=== PATIENT | male | born 1970 | race Caucasian/White ===

== ENCOUNTER 2018-09-07 15:27 | Emergency (ER) | payer OTHER ==
[~2018-09-07] VITALS: Ht 182.9 cm; Wt 95.3 kg
[2018-09-07] MEDS ORDERED: LEXAPRO20 MG (15:55)
[2018-09-07] MEDS ORDERED: HUMULIN 70100 UNIT/2 (15:55)
[2018-09-07] MEDS ORDERED: GLIPIZIDE ER10 MG (15:56)
[2018-09-07] MEDS ORDERED: RESTORIL30 M1 (15:56)
[2018-09-07] MEDS ORDERED: LIPITOR20 MG (15:56)
[2018-09-07] MEDS ORDERED: ASA81 MG (15:56)
[2018-09-07] MEDS ORDERED: COZAAR100 MG (15:57)
[2018-09-07] MEDS ORDERED: B-121000 MC2 (15:57)
[2018-09-07] MEDS ORDERED: SEROQUEL XR150 MG (15:58)
[2018-09-07] MEDS ORDERED: PERCOCET 5-3251 EACH (15:58)
[2018-09-07] MEDS ORDERED: CLONAZEPAM2 MG (15:58)
[2018-09-07] MEDS ORDERED: SKELAXIN800 MG PO (21:35)
== END 2018-09-07 22:03 ==
LOC: ER 15:27
DX: R07.89 Other chest pain (principal); M62.838 Other muscle spasm; M79.18 Myalgia, other site; M72.0 Palmar fascial fibromatosis [Dupuytren]

== ENCOUNTER 2018-09-26 23:48 | Emergency (ER) | payer OTHER ==
[~2018-09-26] VITALS: Ht 182.9 cm; Wt 103.0 kg
[~2018-09-26 23:48] MED LIST: ASA81 MG; B-121000 MC2; CLONAZEPAM2 MG; COZAAR100 MG; GLIPIZIDE ER10 MG; HUMULIN 70100 UNIT/2; LEXAPRO20 MG; LIPITOR20 MG; PERCOCET 5-3251 EACH; RESTORIL30 M1; SEROQUEL XR150 MG; SKELAXIN800 MG PO
[2018-09-27] MEDS ORDERED: CEFUROXIME500 MG PO (06:35)
[2018-09-27] MEDS ORDERED: SILVADENE20 GM TOP (06:35)
== END 2018-09-27 06:47 | disposition home or self-care (01) ==
LOC: ER 23:48
DX: T25.122A Burn of first degree of left foot, initial encounter (principal); X11.8XXA Contact with other hot tap-water, initial encounter; Y93.89 Activity, other specified; Y92.89 Other specified places as the place of occurrence of the external cause; Y99.8 Other external cause status; L02.612 Cutaneous abscess of left foot

== ENCOUNTER 2018-09-29 14:39 | Inpatient (IN) | payer OTHER ==
[~2018-09-29] VITALS: Ht 182.9 cm; Wt 99.8 kg
[~2018-09-29 14:39] MED LIST changes: +CEFUROXIME500 MG PO; +SILVADENE20 GM TOP
== END 2018-10-10 16:27 | disposition home or self-care (01) | DRG 982 ==
LOC: ER 14:39 → MEDJ 09-30 10:46
PROVIDERS: Specialist; ADMIT Internal Medicine
PROC: 0JNR0ZZ Release Left Foot Subcutaneous Tissue and Fascia, Open Approach (ICD-10-PCS; principal; 2018-10-06 13:00)
DX: L03.116 Cellulitis of left lower limb (principal); F23 Brief psychotic disorder; E11.628 Type 2 diabetes mellitus with other skin complications; L97.522 Non-pressure chronic ulcer of other part of left foot with fat layer exposed; L03.032 Cellulitis of left toe; Z79.4 Long term (current) use of insulin; I10 Essential (primary) hypertension; M72.0 Palmar fascial fibromatosis [Dupuytren]; T25.2 Burn of second degree of ankle and foot; B96.89 Other specified bacterial agents as the cause of diseases classified elsewhere; E78.49 Other hyperlipidemia; E11.65 Type 2 diabetes mellitus with hyperglycemia; Z88.6 Allergy status to analgesic agent; E11.40 Type 2 diabetes mellitus with diabetic neuropathy, unspecified; E66.01 Morbid (severe) obesity due to excess calories

== ENCOUNTER 2019-11-05 08:39 | Emergency (ER) | payer OTHER ==
[~2019-11-05] VITALS: Ht 182.9 cm; Wt 96.2 kg
[2019-11-05] MEDS ORDERED: OSEL75CA PO (12:08)
[2019-11-05] MEDS ORDERED: TUSSI PRES-B L480 ML PO (12:08)
== END 2019-11-05 12:19 | disposition home or self-care (01) ==
LOC: ER 08:39
DX: J11.1 Influenza due to unidentified influenza virus with other respiratory manifestations (principal); B34.9 Viral infection, unspecified

== ENCOUNTER 2019-11-08 19:06 | Emergency (ER) | payer OTHER ==
[~2019-11-08] VITALS: Ht 182.9 cm; Wt 95.3 kg
[~2019-11-08 19:06] MED LIST changes: +OSEL75CA PO; +TUSSI PRES-B L480 ML PO
== END 2019-11-08 21:47 | disposition home or self-care (01) ==
LOC: ER 19:06
DX: L02.31 Cutaneous abscess of buttock (principal); B96.29 Other Escherichia coli [E. coli] as the cause of diseases classified elsewhere

== ENCOUNTER 2020-04-17 17:23 | Emergency (ER) | payer OTHER ==
[~2020-04-17] VITALS: Ht 182.9 cm; Wt 99.8 kg
== END 2020-04-17 19:36 | disposition home or self-care (01) ==
LOC: ER 17:23
DX: H60.01 Abscess of right external ear (principal)

== ENCOUNTER 2020-12-24 06:52 | Emergency (ER) | payer OTHER ==
[~2020-12-24] VITALS: Ht 182.9 cm; Wt 95.3 kg
[2020-12-24] MEDS ORDERED: NORFLEX100MG PO (10:52)
== END 2020-12-24 11:02 | disposition home or self-care (01) ==
LOC: ER 06:52
DX: S00.83XA Contusion of other part of head, initial encounter (principal); S40.011A Contusion of right shoulder, initial encounter; W18.39XA Other fall on same level, initial encounter; Y93.89 Activity, other specified; Y92.89 Other specified places as the place of occurrence of the external cause; Y99.8 Other external cause status

== ENCOUNTER 2021-11-06 02:09 | Emergency (ER) | payer OTHER ==
[~2021-11-06] VITALS: Ht 182.9 cm; Wt 97.5 kg
[~2021-11-06 02:09] MED LIST changes: +NORFLEX100MG PO
[2021-11-06] MEDS ORDERED: KETO10TA2 PO (11:02)
[2021-11-06] MEDS ORDERED: NORFLEX100MG PO (11:02)
== END 2021-11-06 12:30 | disposition home or self-care (01) ==
LOC: ER 02:09
DX: M54.59 Other low back pain (principal); R07.89 Other chest pain; Z20.822 Contact with and (suspected) exposure to COVID-19; I10 Essential (primary) hypertension

== ENCOUNTER 2022-10-28 12:41 | Emergency (ER) | payer OTHER ==
[~2022-10-28] VITALS: Ht 182.9 cm; Wt 93.0 kg
[~2022-10-28 12:41] MED LIST changes: +KETO10TA2 PO
[2022-10-28] MEDS ORDERED: INSULIN SYRING1 EA16 MC (13:20)
[2022-10-28] MEDS ORDERED: PERCOCET 5-3251 EACH PO (13:21)
== END 2022-10-28 14:53 | disposition home or self-care (01) ==
LOC: ER 12:41
DX: M51.26 Other intervertebral disc displacement, lumbar region (principal); E11.9 Type 2 diabetes mellitus without complications; Z79.4 Long term (current) use of insulin; I10 Essential (primary) hypertension; Z88.8 Allergy status to other drugs, medicaments and biological substances; Z91.013 Allergy to seafood

== ENCOUNTER 2022-11-05 08:29 | Outpatient (CLI) | payer OTHER ==
[~2022-11-05 08:29] MED LIST changes: +INSULIN SYRING1 EA16 MC; +PERCOCET 5-3251 EACH PO
== END 2022-11-05 09:00 | disposition home or self-care (01) ==
LOC: TOM 08:29
PROVIDERS: ATTEND Internal Medicine Gastroenterology
DX: K56.609 Unspecified intestinal obstruction, unspecified as to partial versus complete obstruction (principal)

== ENCOUNTER → 2022-11-18 | Outpatient (CLI) | payer OTHER | END | disposition home or self-care (01) | LOC: MRI 11:22 | PROVIDERS: ATTEND General Practice | DX: M51.26 Other intervertebral disc displacement, lumbar region (principal) | CPT/HCPCS: 72148 ==

== ENCOUNTER 2022-11-21 07:48 | Emergency (ER) | payer OTHER ==
[~2022-11-21] VITALS: Ht 182.9 cm; Wt 93.4 kg
[2022-11-21] MEDS ORDERED: PERCOCET 5-3251 EACH PO (10:22)
== END 2022-11-21 10:39 | disposition home or self-care (01) ==
LOC: ER 07:48
DX: S42.202A Unspecified fracture of upper end of left humerus, initial encounter for closed fracture (principal); W18.30XA Fall on same level, unspecified, initial encounter; Y93.9 Activity, unspecified; Y92.9 Unspecified place or not applicable; Z88.6 Allergy status to analgesic agent; Z91.013 Allergy to seafood